=== PATIENT | female | born 1990 ===

== ENCOUNTER 2023-10-10 05:18 | Inpatient (IN) | payer BC ==
[2023-10-10] MEDS ORDERED: Sodium Chloride 0.9% 2.5 ML Syringe FLUSH PRN (05:24)
[2023-10-10] MEDS ORDERED: Sodium Chloride 0.9% 10 ML Syringe FLUSH PRN (05:24)
[2023-10-10] MEDS ORDERED: Sodium Chloride 0.9% 20 ML SDV IV PRN (05:24)
[2023-10-10] MEDS ORDERED: Oxytocin/0.9 % Sodium Chloride 30 UNIT/500 ML BAG IV SCH (05:30)
[2023-10-10] MEDS: Lactated Ringers 1,000 ML IV SCH ×2 (06:00→10:48)
[2023-10-10 06:21] LABS: HEMATOCRIT 37.2 % (37.0-47.0); HEMOGLOBIN 13.7 g/dL (12.0-16.0); MEAN CORPUSCULAR HEMOGLOBIN 30.9 pg (28.0-32.0); MEAN CORPUSCULAR HGB CONC 36.8 g/dL (32.0-36.0); MEAN CORPUSCULAR VOLUME 83.8 fL (83.0-99.0); MEAN PLATELET VOLUME 10.9 fL (9.4-12.3); PLATELET COUNT,PLT 232 K/uL (150-400); RED BLOOD CELL COUNT 4.44 M/uL (4.10-5.30); WHITE BLOOD CELL COUNT,WBC 10.56 K/uL (3.9-11.3)
[2023-10-10] MEDS ORDERED: Dexamethasone 4 MG/ML 5 ML MDV ONE (06:58)
[2023-10-10] MEDS ORDERED: Ropivacaine 0.5% 5 MG/ML 30 ML SDV ONE (06:58)
[2023-10-10] MEDS ORDERED: Ondansetron 4 MG/2 ML SDV ONE (06:58)
[2023-10-10] MEDS ORDERED: dexmedeTOMIDine HCl 200 MCG/2 ML SDV ONE (06:58)
[2023-10-10] MEDS ORDERED: Tranexamic Acid 1,000 MG/10 ML Vial ONE (06:58)
[2023-10-10] MEDS ORDERED: fentaNYL 100 MCG/2 ML SDV ONE (06:59)
[2023-10-10] MEDS ORDERED: ceFAZolin 2 GM Vial ONE (06:59)
[2023-10-10] MEDS ORDERED: Morphine PF 10 MG/10 ML SDV ONE (06:59)
[2023-10-10] MEDS ORDERED: Calcium Chloride 10% 1 GM/10 ML Syringe ONE (06:59)
[2023-10-10] MEDS ORDERED: Water For Injection, Sterile 20 ML ONE (06:59)
[2023-10-10] MEDS ORDERED: Phenylephrine 1% 10 MG/ML SDV ONE (06:59)
[2023-10-10] MEDS ORDERED: ePHEDrine 50 MG/ML SDV ONE (07:17)
[2023-10-10] MEDS ORDERED: fentaNYL 50 MCG/ML SDV IVPUSH PRN ×2 (07:56)
[2023-10-10] MEDS ORDERED: HYDROmorphone 1 MG/ML Syringe IVPUSH PRN (07:56)
[2023-10-10] MEDS ORDERED: Naloxone 0.4 MG/ML SDV IVPUSH PRN (07:56)
[2023-10-10] MEDS ORDERED: droPERidol 5 MG/2 ML SDV IVPUSH PRN (07:56)
[2023-10-10] MEDS ORDERED: Albuterol 0.083% 2.5 MG/3 ML Neb Soln NEB PRN (07:56)
[2023-10-10] MEDS ORDERED: ePHEDrine 50 MG/ML SDV IVPUSH PRN (07:56)
[2023-10-10] MEDS ORDERED: Metoclopramide 10 MG/2 ML SDV IVPUSH PRN (07:56)
[2023-10-10] MEDS ORDERED: Ondansetron 4 MG/2 ML SDV IVPUSH PRN ×3 (07:56→08:35)
[2023-10-10] MEDS ORDERED: Nalbuphine 10 MG/1 ML Vial IVPUSH PRN (07:56)
[2023-10-10] MEDS ORDERED: Morphine 2 MG/ML SYRINGE IVPUSH PRN (07:56)
[2023-10-10] MEDS ORDERED: diphenhydrAMINE 50 MG/ML SDV IVPUSH PRN ×2 (07:56→08:35)
[2023-10-10] MEDS ORDERED: Bisacodyl 10 MG Supp RECTAL PRN (08:35)
[2023-10-10] MEDS ORDERED: Misoprostol 200 MCG Tab RECTAL PRN (08:35)
[2023-10-10] MEDS ORDERED: Acetaminophen/oxyCODONE 325-5 MG Tab PO PRN (08:35)
[2023-10-10] MEDS ORDERED: Oxytocin 10 Units/1 ML SDV IM PRN (08:35)
[2023-10-10] MEDS ORDERED: Methylergonovine 0.2 MG/1 ML Amp IM PRN (08:35)
[2023-10-10 08:45] LABS: PH,UMBILICAL ARTERIAL 7.165 (7.18-7.38); PH,UMBILICAL VENOUS 7.258 (7.25-7.45)
[2023-10-10] MEDS: Citric Acid/Sodium Citrate Solution 30 ML Cup PO ONE (09:36)
[2023-10-10] MEDS: ceFAZolin 2 GM in Sodium Chloride 0.9% 50 ML IV ONE (09:37)
[2023-10-10] MEDS: Docusate Sodium 100 MG Cap PO SCH (09:38)
[2023-10-10] MEDS: Ketorolac 30 MG/ML SDV IVPUSH SCH (09:43)
[2023-10-10] MEDS: Acetaminophen 1,000 MG in Premix Bag 1 BAG IV SCH (10:48)
[2023-10-10] MEDS: Simethicone 80 MG Tab.Chew PO SCH (12:28)
[2023-10-10] MEDS: Lanolin 100% Cream 7 GM Tube TOP PRN (23:55)
[2023-10-11 05:55] LABS: HEMATOCRIT 27.3 % (37.0-47.0); HEMOGLOBIN 9.9 g/dL (12.0-16.0)
[2023-10-11] MEDS: Acetaminophen/oxyCODONE 325-5 MG Tab PO PRN (11:59)
[2023-10-11] MEDS: Ibuprofen 800 MG Tab PO PRN (21:16)
[2023-10-12] MEDS: Acetaminophen/oxyCODONE 325-5 MG Tab PO PRN (05:02)
[2023-10-12 17:33] VITALS: BP 134/69; PULSE 79
== END 2023-10-12 18:12 | disposition home or self-care (01) | DRG 540 ==
LOC: MW.OB 05:18
PROVIDERS: ADMIT Obstetrics & Gynecology; ATTEND Obstetrics & Gynecology
PROC: 10D00Z1 Extraction of Products of Conception, Low, Open Approach (ICD-10-PCS; principal; 2023-10-10 08:00)
DX: O32.1XX0 Maternal care for breech presentation, not applicable or unspecified (principal); Z37.0 Single live birth; Z90.89 Acquired absence of other organs; Z98.890 Other specified postprocedural states; Z3A.39 39 weeks gestation of pregnancy
CPT/HCPCS: 36415; 59025; 82803; 85014; 85018; 85027; 86592; 86850; 86900; 86901; A9270-GY; J0131; J0690; J1100; J1885; J2274; J2371; J2405; J2795; J3010; J3490; J7120